=== PATIENT | male | born 1930 | race Caucasian/White ===

== ENCOUNTER 2017-03-07 14:35 | Inpatient (IN) | payer OTHER ==
--- NOTE | 2017-03-07 14:37 | EDPHY ---
H & P Time Seen by Provider: 03/07/17 14:36 HPI/ROS: CHIEF COMPLAINT: Shortness of breath HISTORY OF PRESENT ILLNESS: The patient is an 86[facility] brought by EMS for shortness of breath. They state that when he was arrived his respiratory rate was 36 and his saturations were in the 70s. Both of these improved with nasal cannula and a non-rebreather. He has a history of COPD and chronic respiratory failure as well as dementia and hypertension. No known cardiac disease. No recent fevers or illness according to EMS. Patient states that he is fine and does not need to be here. REVIEW OF SYSTEMS: Constitutional: denies: chills, fever, recent illness, recent injury EENTM: denies: blurred vision, double vision, nose congestion Respiratory: See HPI Cardiac: denies: chest pain, irregular heart rate, lightheadedness, palpitations Gastrointestinal/Abdominal: denies: abdominal pain, diarrhea, nausea, vomiting, blood streaked stools Genitourinary: denies: dysuria, frequency, hematuria, pain Musculoskeletal: denies: joint pain, muscle pain Skin: denies: lesions, rash, jaundice, bruising Neurological: denies: headache, numbness, paresthesia, tingling, dizziness, weakness Hematologic/Lymphatic: denies: blood clots, easy bleeding, easy bruising Immunologic/allergic: denies: HIV/AIDS, transplant EXAM: GENERAL: Well-appearing, well-nourished and in no acute distress. HEAD: Atraumatic, normocephalic. EYES: Pupils equal round and reactive to light, extraocular movements intact, sclera anicteric, conjunctiva are normal. ENT: TMs normal, nares patent, oropharynx clear without exudates. Moist mucous membranes. NECK: Normal range of motion, supple without lymphadenopathy or JVD. LUNGS: Bilateral wheezing upper lobes and rhonchi lower lobes. HEART: Regular rate and rhythm without murmurs, rubs or gallops. ABDOMEN: Soft, nontender, normoactive bowel sounds. No guarding, no rebound. No masses appreciated. BACK: No CVA tenderness, no spinal tenderness, step-offs or deformities EXTREMITIES: Normal range of motion, no pitting or edema. No clubbing or cyanosis. NEUROLOGICAL: Cranial nerves II through XII grossly intact. Normal speech, normal gait. 5/5 strength, normal movement in all extremities, normal sensation PSYCH: Normal mood, normal affect. SKIN: Warm, dry, normal turgor, no visible rashes or lesions. Source: Patient, EMS, shelter records Exam Limitations: Clinical condition - Medical/Surgical History Hx Asthma: No Hx Chronic Respiratory Disease: No Hx Diabetes: No Hx Cardiac Disease: No Hx Renal Disease: No Hx Cirrhosis: No Hx Alcoholism: No Other PMH: COPD, hypertension, dementia - Family History Significant Family History: Hypertension - Social History Smoking Status: Former smoker Alcohol Use: Sober Drug Use: None Constitutional: Initial Vital Signs Temperature (C) 36.4 C 03/07/17 14:46 Heart Rate 84 03/07/17 14:46 Respiratory Rate 26 H 03/07/17 14:46 Blood Pressure 160/66 H 03/07/17 14:46 O2 Sat (%) 92 03/07/17 14:46 O2 Delivery Mode Nasal Cannula O2 (L/minute) 6 Allergies/Adverse Reactions: No Known Allergies Allergy (Unverified 03/07/17 14:58) Home Medications: Medication Instructions Recorded Amiodarone HCl [Pacerone (*)] 200 mg PO BID 03/07/17 Bisacodyl [Dulcolax] 10 mg RC DAILY PRN 03/07/17 Fluticasone Nasal [Flonase Nasal 1 sprays EACHNARE DAILY 03/07/17 [place] (RX)] Fluticasone/Salmeter 100/50Mcg 1 puffs IH BID 03/07/17 [Advair 100/50 (*)] Herbals/Supplements -Info Only 1 ea PO DAILY 03/07/17 Ipratropium/Albuterol [Duoneb (*)] 3 ml IH Q4H PRN 03/07/17 Levalbuterol 1.25 mg [Xopenex 1.25 mg IH Q8H PRN 03/07/17 1.25MG Neb (*)] Levothyroxine [Synthroid 50 mcg 50 mcg PO DAILY 03/07/17 (*)] Metoprolol Tartrate [Lopressor 25 25 mg PO BID 03/07/17 mg (*)] Nystatin [Mycostatin Oint (RX)] 1 yahaira TP BID PRN 03/07/17 Polyethylene Glycol 3350 [Miralax 17 gm PO DAILY PRN 03/07/17 17 gm (*)] Ranitidine HCl [Zantac 75] 150 mg PO DAILY 03/07/17 Tamsulosin HCl [Flomax 0.4 MG (*)] 0.4 mg PO BID 03/07/17 Tiotropium Inhaler [Spiriva 18 mcg IH DAILY@09 03/07/17 [place]haler] predniSONE [Prednisone] 5 mg PO DAILY 03/07/17 Medical Decision Making ED Course/Re-evaluation: 3:30 p.m. I discussed the case with Dr MICHAELA Blanco who will admit to the medical service. She is requesting influenza to be sent as well. I will be cautious with his IV fluids. His vital signs are stable other than the hypoxia. His chest x-ray could be consistent with pulmonary edema although he does not have significant cardiomegaly or peripheral edema or crackles on breath sounds. He will need to be monitored closely Differential Diagnosis: Partial list of the Differential diagnosis considered include but were not limited to; pneumonia, COPD, CHF and although unlikely based on the history and physical exam, I also considered acute coronary disease, dissection, PE. Critical Care Time: I spent a total of 35 minutes of critical care time in obtaining history, performing a physical exam, bedside monitoring of interventions, collecting and interpreting tests and discussion with consultants but not including time spent performing procedures. - Data Points Laboratory Results: Laboratory Results 03/07/17 14:45 03/07/17 14:45 Medications Given: Discontinued Medications Albuterol/Ipratropium (Duoneb) 3 ml IH EDNOW ONE Stop: 03/07/17 14:43 Last Admin: 03/07/17 15:19 Dose: 3 ml Albuterol/Ipratropium (Duoneb) 3 ml IH ONCE ONE Stop: 03/07/17 16:26 Last Admin: 03/07/17 16:38 Dose: 3 ml Sodium Chloride (Ns) 2,200 mls @ 4,400 mls/hr 30 ml/kg infuse over 30 min ( 2200 ml) IV EDNOW ONE Stop: 03/07/17 15:52 Last Admin: 03/07/17 15:39 Dose: 2,200 mls Levofloxacin/Dextrose (Levaquin 750 Mg (Premix)) 150 mls @ 100 mls/hr IV EDNOW ONE PRN Reason: Protocol Stop: 03/07/17 16:56 Last Admin: 03/07/17 16:11 Dose: 150 mls Sodium Chloride (Ns) 1,000 mls @ 3,000 mls/hr IV ONCE ONE Stop: 03/07/17 15:56 Last Admin: 03/07/17 16:14 Dose: Not Given Methylprednisolone Sodium Succinate (Solu-Medrol) 125 mg IVP EDNOW ONE Stop: 03/07/17 14:43 Last Admin: 03/07/17 15:03 Dose: 125 mg Departure - Departure Disposition: [facility] Inpatient Acute Clinical Impression: Severe sepsis Pneumonia Qualifiers: Pneumonia type: due to unspecified organism Laterality: bilateral Lung location : unspecified part of lung Qualified Code(s): J18.9 - Pneumonia, unspecified organism Condition: Fair
[2017-03-07] MEDS ORDERED: IPRATROPIUM/ALBUTEROL 3 ML DEYVIAL IH ONE ×2 (14:42→16:25)
[2017-03-07] MEDS ORDERED: methylPREDNISolone SOD SUCC 125 MG/2 ML VIAL IVP ONE (14:42)
[2017-03-07 14:56] LABS: % IMMATURE GRANULYOCYTES 1.2 % (0.0-1.1); ABSOLUTE IMMATURE GRANULOCYTES 0.21 10^3/uL (0.00-0.10); ADD DIFF? NO; ADD MORPH? NO; ADD SCAN? NO; ATYPICAL LYMPHOCYTE FLAG 0 (0-99); FRAGMENT RBC FLAG 0 (0-99); HEMATOCRIT 38.8 % (40.0-51.0); HEMOGLOBIN 12.6 g/dL (13.7-17.5); LEFT SHIFT FLG 20 (0-99); LIPEMIA HEMOLYSIS FLAG 80 (0-99); MEAN CELL HEMOGLOBIN 31.4 pg (27.9-34.1); MEAN CELL HEMOGLOBIN CONCENTR. 32.5 g/dL (32.4-36.7); MEAN CELL VOLUME 96.8 fL (81.5-99.8); MEAN PLATELET VOLUME 9.6 fL (8.7-11.7); PLATELET CLUMPS FLAG 0 (0-99); PLATELET COUNT 330 10^3/uL (150-400); RED BLOOD CELL COUNT 4.01 10^6/uL (4.40-6.38); RED CELL DISTRIBUTION WIDTH 15.6 % (11.5-15.2)
--- NOTE | 2017-03-07 14:59 | CPEKG ---
Heart Rate: 76 RR Interval: 789 P-R Interval: 160 QRSD Interval: 94 QT Interval: 400 QTC Interval: 450 P [place]: 73 QRS [place]: 84 T Wave [place]: 69 EKG Severity - OTHERWISE NORMAL ECG - EKG Impression: SINUS RHYTHM EKG Impression: BORDERLINE RIGHT AXIS DEVIATION Electronically Signed By: Gurdeep Mclain 07-Mar-2017 15:05:20
[2017-03-07 15:14] LABS: ALANINE AMINOTRANSFERASE 35 IU/L (21-72); ALBUMIN 3.8 g/dL (3.5-5.0); ALKALINE PHOSPHATASE 86 IU/L (38-126); ANION GAP 12 mEq/L (8-16); ASPARTATE AMINOTRANSFERASE 29 IU/L (17-59); BILIRUBIN,TOTAL 0.9 mg/dL (0.1-1.4); BILIRUBIN-CONJUGATED 0.5 mg/dL (0.0-0.5); BILIRUBIN-UNCONJUGATED 0.4 mg/dL (0.0-1.1); CALCIUM 8.9 mg/dL (8.5-10.4); CARBON DIOXIDE 20 mEq/l (22-31); CHLORIDE 96 mEq/L (97-110); CREATININE 1.1 mg/dL (0.7-1.3); GLOMERULAR FILTRATION RATE > 60; GLUCOSE 135 mg/dL (70-100); POTASSIUM 5.6 mEq/L (3.5-5.2); SODIUM 128 mEq/L (134-144); TOTAL PROTEIN 6.6 g/dL (6.3-8.2)
[2017-03-07] MEDS ORDERED: NS 2,200 ML IV ONE (15:23)
[2017-03-07 15:26] LABS: TROPONIN I < 0.012 ng/mL (0-0.034)
[2017-03-07] MEDS ORDERED: ONDANSETRON 4 MG/2 ML VIAL IVP PRN (15:37)
[2017-03-07] MEDS ORDERED: ONDANSETRON DISINTEGRATING 4 MG TAB PO PRN (15:37)
[2017-03-07] MEDS ORDERED: ACETAMINOPHEN 325 MG TAB PO PRN (15:37)
[2017-03-07] MEDS ORDERED: NS 1,000 ML IV ONE (15:37)
[2017-03-07] MEDS ORDERED: IPRATROPIUM/ALBUTEROL 3 ML DEYVIAL ONE (16:26)
[2017-03-07] MEDS ORDERED: LEVALBUTEROL 1.25 MG/3 ML DEYVIAL IH PRN (17:41)
[2017-03-07] MEDS ORDERED: NYSTATIN 15 GM OINTMENT TP PRN (17:41)
[2017-03-07] MEDS ORDERED: BISACODYL 10 MG SUPP PR PRN (17:41)
[2017-03-07] MEDS ORDERED: POLYETHYLENE GLYCOL 3350 17 GM PKT PO PRN (17:41)
[2017-03-07] MEDS: FAMOTIDINE 20 MG TAB PO SCH (17:51)
[2017-03-07] MEDS: IPRATROPIUM/ALBUTEROL 3 ML DEYVIAL IH SCH (18:06)
--- NOTE | 2017-03-07 18:56 | GHP ---
[f rep st] HISTORY AND PHYSICAL DATE OF ADMISSION: 03/07/2017 CHIEF COMPLAINT: Rattling chest. HISTORY OF PRESENT ILLNESS: An 86-year-old male who is a resident of a ch[facility], [facility], who presents after he called the nurse today with complaints of a rattling chest. The patient appears to have some level of cognitive dysfunction, but describes being in his previous normal state of health and today, noticing a fullness or a rattling in his chest with some congestion and shortness of breath. The patient does report some cough that he does not feel is productive, as of his presentation to the ED. Denied any documented fevers or chills. Denied any nausea or vomiting. Reports chronic constipation, which has been unchanged. Denies any blood in his stool or in his urine. Denies any dysuria. Denies any muscle aches or pains, or any new rashes. PAST MEDICAL HISTORY: 1. COPD. 2. Gastroesophageal reflux disease. 3. BPH. 4. Hypothyroidism. 5. Suspect a dysrhythmia of some sort, as the patient is on amiodarone, but it is not noted in his [facility] chart. 6. Suspect baseline cognitive impairment based on admission interview SOCIAL HISTORY: The patient denies tobacco, alcohol or illicit drugs. FAMILY HISTORY: He denies any history of lung disease or heart disease in his family. Does report some relatives with atrial fibrillation. ADVANCED DIRECTIVES: Per the [facility] chart, the patient is full cor, full tube. REVIEW OF SYSTEMS: A 10-point review of systems is negative, with the exception of that reported in the HPI. PHYSICAL EXAMINATION: VITAL SIGNS: Blood pressure 109/69, heart rate 83, respiratory rate 28, saturating 90% on 15 L non-rebreather, afebrile at 36.4. GENERAL: This is a pleasant elderly male in no acute distress. HEENT: Notable for dry mucous membranes. Eye exam is negative for any icterus. CARDIAC: The patient sounds regular with a systolic murmur. PULMONARY: The patient does have wheezing anteriorly and posteriorly, with rhonchi noted bilaterally in the mid lung [place]. GASTROINTESTINAL: Positive bowel sounds. Abdomen is soft and nontender. MUSCULOSKELETAL: Negative for any lower extremity edema. SKIN: Negative for any rashes. NEUROLOGIC: The patient is alert and oriented x3. He does appear to have some cognitive dysfunction, but certainly knows who he is, where he is, and when it is. PSYCHIATRIC: He is pleasant and cooperative on interview and examination. DATA: White count is 17.5, hematocrit 38.8, platelets of 330. Sodium of 128, potassium of 5.6, creatinine 1.1. Troponin less than 0.012. IMAGING: Chest x-ray, which I personally reviewed and interpreted, shows bilateral infiltrates. Radiology queries underlying interstitial lung disease with right lower lobe pneumonia. EKG, which I personally reviewed and interpreted, shows sinus rhythm, normal axis, interventricular conduction delay , with no acute ST-T changes. ASSESSMENT AND PLAN: This is an 86-year-old male, presenting with shortness of breath. 1. Presumed community-acquired pneumonia. The patient is presenting with rattling chest wheezing, leukocytosis and infiltrates on chest x-ray. Will be empirically started on azithromycin and ceftriaxone. Blood cultures have been drawn from the emergency department and will follow those, and sputum cultures. Have asked that we check an influenza as well. 2. Chronic obstructive pulmonary disease exacerbation. Suspect triggered by underlying infectious process. Will continue the patient's home medications as well as scheduling DuoNeb here. The patient is chronically on 5 mg of prednisone. Will burst him with 40 mg daily. Did receive IV steroids in the emergency department on presentation. 3. Hypothyroidism. Will continue his Synthroid without change. 4. Benign prostatic hypertrophy. Will continue his tamsulosin without change. 5. Suspected cardia dysrhythmia based on the patient's medication list that includes both metoprolol and amiodarone. Will continue the amiodarone currently , but hold the metoprolol until we can establish the patient is hemodynamically stable. 6. Acute leukocytosis. The patient is presenting with a white count of 17. Suspect secondary to pneumonia. Will empirically treat as above and follow. 7. Hyponatremia. The patient looks more volume down than anything. He received fluid resuscitation in the ED. If he is taking p.o., will simply recheck a sodium in the morning. 8. Hyperkalemia. Unclear if this is true lab finding or hemolysis. Will repeat a BMP after fluid resuscitation this evening. 9. Prophylaxis with Lovenox. 10. Diet regular. DISPOSITION: I am expecting greater than 2 midnights. The patient is 86, presenting with COPD exacerbation and pneumonia. I have discussed the case with the emergency room physician. The patient will be triaged to the medical-surgical floor for care. /[id number]/MODL MTDD
[2017-03-07] MEDS: AMIODARONE HCL 200 MG TAB PO SCH (19:59)
[2017-03-07] MEDS: TAMSULOSIN HCL 0.4 MG CAP PO SCH (19:59)
[2017-03-07] MEDS: guaiFENesin 600 MG TAB.ER PO SCH (19:59)
[2017-03-07 20:45] LABS: ANION GAP 10 mEq/L (8-16); CALCIUM 8.1 mg/dL (8.5-10.4); CARBON DIOXIDE 18 mEq/l (22-31); CHLORIDE 100 mEq/L (97-110); GLOMERULAR FILTRATION RATE > 60; GLUCOSE 190 mg/dL (70-100); POTASSIUM 4.8 mEq/L (3.5-5.2); SODIUM 128 mEq/L (134-144)
[2017-03-08] MEDS: FLUTICASONE/SALMETER 100/50MCG DISKUS IH SCH ×3 (00:10→19:50)
[2017-03-08] MEDS: IPRATROPIUM/ALBUTEROL 3 ML DEYVIAL IH SCH ×5 (00:10→23:00)
[2017-03-08 05:08] LABS: % IMMATURE GRANULYOCYTES 0.8 % (0.0-1.1); ABSOLUTE IMMATURE GRANULOCYTES 0.09 10^3/uL (0.00-0.10); ADD DIFF? NO; ADD MORPH? NO; ADD SCAN? NO; ATYPICAL LYMPHOCYTE FLAG 0 (0-99); FRAGMENT RBC FLAG 0 (0-99); HEMATOCRIT 31.9 % (40.0-51.0); HEMOGLOBIN 10.7 g/dL (13.7-17.5); LEFT SHIFT FLG 30 (0-99); LIPEMIA HEMOLYSIS FLAG 80 (0-99); MEAN CELL HEMOGLOBIN CONCENTR. 33.5 g/dL (32.4-36.7); MEAN CELL VOLUME 95.5 fL (81.5-99.8); MEAN PLATELET VOLUME 9.8 fL (8.7-11.7); PLATELET CLUMPS FLAG 0 (0-99); PLATELET COUNT 299 10^3/uL (150-400); RED BLOOD CELL COUNT 3.34 10^6/uL (4.40-6.38); RED CELL DISTRIBUTION WIDTH 15.5 % (11.5-15.2)
[2017-03-08 05:44] LABS: ANION GAP 10 mEq/L (8-16); CALCIUM 8.4 mg/dL (8.5-10.4); CARBON DIOXIDE 19 mEq/l (22-31); CHLORIDE 104 mEq/L (97-110); CREATININE 0.9 mg/dL (0.7-1.3); GLOMERULAR FILTRATION RATE > 60; GLUCOSE 153 mg/dL (70-100); POTASSIUM 4.7 mEq/L (3.5-5.2); SODIUM 133 mEq/L (134-144)
[2017-03-08] MEDS: TIOTROPIUM INHALER 18 MCG/DOSE 5 DOSE/MDI IH SCH (08:51)
[2017-03-08] MEDS ORDERED: predniSONE 10 MG TAB PO SCH (09:00)
[2017-03-08] MEDS ORDERED: Herbals/Supplements -Info Only PO SCH (09:00)
[2017-03-08] MEDS: AZITHROMYCIN IV 500 MG in D5W 250 ML IV SCH (09:27)
[2017-03-08] MEDS: AMIODARONE HCL 200 MG TAB PO SCH ×2 (09:33→21:45)
[2017-03-08] MEDS: FAMOTIDINE 20 MG TAB PO SCH (09:33)
[2017-03-08] MEDS: LEVOTHYROXINE 50 MCG TAB PO SCH (09:34)
[2017-03-08] MEDS: TAMSULOSIN HCL 0.4 MG CAP PO SCH ×2 (09:34→21:45)
[2017-03-08] MEDS: predniSONE 20 MG TAB PO SCH (09:34)
[2017-03-08] MEDS: guaiFENesin 600 MG TAB.ER PO SCH ×2 (09:35→21:45)
[2017-03-08] MEDS: ENOXAPARIN 40 MG/0.4 ML SYR SC SCH (09:35)
[2017-03-08] MEDS: FLUTICASONE NASAL 120 SPRAYS/16 GM MDI EACHNARE SCH (10:14)
[2017-03-08] MEDS ORDERED: FUROSEMIDE 40 MG/4 ML VIAL IVP ONE (10:25)
--- NOTE | 2017-03-08 14:22 | HOSPPROG ---
Hospitalist Progress Note Assessment/Plan: 86y male with c/o SOB. This is my first encounter. Chart reviewed. #CAP CXR shows potential fluid (personally reviewed) Cont CTX and azithro #Acute hypoxemic resp failure multifactorial cont support #CHF dose of lasix given 40mg IV #COPD exac cont steroids #Acute leukocytosis significantly better today #Hyponatremia better, dehydration #Anemia mild #Hypothyroid cont home meds #Hyperkalemia resolved with fluids #Dispo unclear, may need SNF PT/OT eval Subjective: Up in chair. Feels better then yesterday. No pain. Objective: Vital Signs Temp Pulse Resp BP Pulse Ox 36.6 C 93 22 H 106/51 L 92 03/08/17 12:00 03/08/17 12:00 03/08/17 12:00 03/08/17 12:00 03/08/17 12:00 Laboratory Results 03/08/17 04:34 03/08/17 04:34 03/07/17 03/08/17 03/09/17 05:59 05:59 05:59 Intake Total 2200 Balance 2200 - Physical Exam Constitutional: no apparent distress, appears nourished, not in pain Eyes: PERRL, anicteric sclera, EOMI Ears, Nose, Mouth, Throat: moist mucous membranes, hearing normal, ears appear normal Cardiovascular: No JVD, No tachycardia, No edema Respiratory: no respiratory distress, reduced air movement, rhonchi Gastrointestinal: normoactive bowel sounds, No tenderness, No ascites Skin: warm, normal color, No mottled Musculoskeletal: normal joint ROM, no joint effusions, generalized weakness Neurologic: AAOx3 Psychiatric: interacting appropriately, not anxious, not encephalopathic, poor insight, poor memory ICD10 Worksheet Patient Problems: Problems Problem Status Onset Chronic Disease Mgmt/Transitional Care Acute Pneumonia Acute Severe sepsis Acute
[2017-03-09] MEDS: IPRATROPIUM/ALBUTEROL 3 ML DEYVIAL IH SCH ×4 (06:01→22:38)
[2017-03-09] MEDS: TAMSULOSIN HCL 0.4 MG CAP PO SCH ×2 (08:00→20:29)
[2017-03-09] MEDS: predniSONE 20 MG TAB PO SCH (08:01)
[2017-03-09] MEDS: guaiFENesin 600 MG TAB.ER PO SCH ×2 (08:01→20:29)
[2017-03-09] MEDS: LEVOTHYROXINE 50 MCG TAB PO SCH (08:01)
[2017-03-09] MEDS: AMIODARONE HCL 200 MG TAB PO SCH ×2 (08:02→20:29)
[2017-03-09] MEDS: FAMOTIDINE 20 MG TAB PO SCH (08:02)
[2017-03-09] MEDS: ENOXAPARIN 40 MG/0.4 ML SYR SC SCH (08:02)
[2017-03-09] MEDS: FLUTICASONE NASAL 120 SPRAYS/16 GM MDI EACHNARE SCH (08:08)
[2017-03-09] MEDS: AZITHROMYCIN IV 500 MG in D5W 250 ML IV SCH (09:14)
[2017-03-09] MEDS: FLUTICASONE/SALMETER 100/50MCG DISKUS IH SCH ×2 (10:53→22:38)
[2017-03-09] MEDS: TIOTROPIUM INHALER 18 MCG/DOSE 5 DOSE/MDI IH SCH (10:53)
[2017-03-09] MEDS ORDERED: FUROSEMIDE 20 MG/2 ML VIAL IVP ONE (12:17)
--- NOTE | 2017-03-09 12:23 | HOSPPROG ---
Hospitalist Progress Note Assessment/Plan: 86y male with c/o SOB. This is my first encounter. Chart reviewed. #CAP, improving CXR shows potential fluid (personally reviewed) Cont CTX and azithro Repeat CXR in a.m. #Acute hypoxemic resp failure multifactorial cont support #Query CHF, unclear if systolic or diastolic. Unclear chronicity. Will provide additional Lasix today and order TTE. #COPD exac cont steroids #Acute leukocytosis significantly better today #Hyponatremia, repeat labs in the a.m. better, dehydration #Anemia mild #Hypothyroid cont home meds #Hyperkalemia resolved with fluids #Dispo unclear, may need SNF PT/OT eval Subjective: feels better but still with increased O2 needs from baseline. No cough. Some leg edema. Denies hx of CHF Objective: Vital Signs Temp Pulse Resp BP Pulse Ox 36.4 C 93 18 119/58 L 90 L 03/09/17 11:18 03/09/17 11:18 03/09/17 11:18 03/09/17 11:18 03/09/17 11:18 Laboratory Results 03/08/17 04:34 03/08/17 04:34 03/08/17 03/09/17 03/10/17 05:59 05:59 05:59 Intake Total 2200 250 Output Total 175 Balance 2200 75 - Physical Exam Constitutional: no apparent distress, appears nourished Eyes: PERRL, EOMI Ears, Nose, Mouth, Throat: moist mucous membranes, ears appear normal Cardiovascular: regular rate and rhythym, edema (trace bilaterally), No irregularly irregular, No JVD Respiratory: no respiratory distress, rhonchi Gastrointestinal: normoactive bowel sounds, soft, non-tender abdomen, no palpable masses Genitourinary: no bladder fullness Skin: warm, normal color Neurologic: AAOx3, CN II-XII Intact Psychiatric: interacting appropriately, not anxious, not encephalopathic ICD10 Worksheet Patient Problems: Problems Problem Status Onset Chronic Disease Mgmt/Transitional Care Acute Pneumonia Acute Severe sepsis Acute
[2017-03-10 05:22] LABS: % IMMATURE GRANULYOCYTES 1.2 % (0.0-1.1); ABSOLUTE IMMATURE GRANULOCYTES 0.14 10^3/uL (0.00-0.10); ADD DIFF? NO; ADD MORPH? NO; ADD SCAN? NO; ATYPICAL LYMPHOCYTE FLAG 10 (0-99); FRAGMENT RBC FLAG 0 (0-99); HEMATOCRIT 33.5 % (40.0-51.0); HEMOGLOBIN 11.2 g/dL (13.7-17.5); LEFT SHIFT FLG 10 (0-99); LIPEMIA HEMOLYSIS FLAG 80 (0-99); MEAN CELL HEMOGLOBIN 31.7 pg (27.9-34.1); MEAN CELL HEMOGLOBIN CONCENTR. 33.4 g/dL (32.4-36.7); MEAN CELL VOLUME 94.9 fL (81.5-99.8); MEAN PLATELET VOLUME 9.1 fL (8.7-11.7); PLATELET CLUMPS FLAG 0 (0-99); PLATELET COUNT 304 10^3/uL (150-400); RED BLOOD CELL COUNT 3.53 10^6/uL (4.40-6.38); RED CELL DISTRIBUTION WIDTH 15.8 % (11.5-15.2)
[2017-03-10 05:38] LABS: ANION GAP 6 mEq/L (8-16); CALCIUM 8.8 mg/dL (8.5-10.4); CARBON DIOXIDE 24 mEq/l (22-31); CHLORIDE 102 mEq/L (97-110); GLOMERULAR FILTRATION RATE > 60; GLUCOSE 86 mg/dL (70-100); POTASSIUM 4.4 mEq/L (3.5-5.2); SODIUM 132 mEq/L (134-144)
[2017-03-10] MEDS: IPRATROPIUM/ALBUTEROL 3 ML DEYVIAL IH SCH ×4 (05:38→22:37)
[2017-03-10] MEDS: AZITHROMYCIN IV 500 MG in D5W 250 ML IV SCH (08:32)
[2017-03-10] MEDS: guaiFENesin 600 MG TAB.ER PO SCH ×2 (08:34→20:35)
[2017-03-10] MEDS: LEVOTHYROXINE 50 MCG TAB PO SCH (08:38)
[2017-03-10] MEDS: FAMOTIDINE 20 MG TAB PO SCH (08:38)
[2017-03-10] MEDS: AMIODARONE HCL 200 MG TAB PO SCH ×2 (08:38→20:35)
[2017-03-10] MEDS: predniSONE 20 MG TAB PO SCH (08:38)
[2017-03-10] MEDS: TAMSULOSIN HCL 0.4 MG CAP PO SCH ×2 (08:39→20:35)
[2017-03-10] MEDS: ENOXAPARIN 40 MG/0.4 ML SYR SC SCH (08:47)
[2017-03-10] MEDS ORDERED: FUROSEMIDE 40 MG/4 ML VIAL IVP STA (09:01)
[2017-03-10] MEDS: TIOTROPIUM INHALER 18 MCG/DOSE 5 DOSE/MDI IH SCH (09:06)
[2017-03-10] MEDS: FLUTICASONE/SALMETER 100/50MCG DISKUS IH SCH ×2 (09:06→22:38)
--- NOTE | 2017-03-10 09:53 | HOSPPROG ---
Hospitalist Progress Note Assessment/Plan: this is an 85 yo M admitted for CAP and COPD-E. Upon further clinical path, he likely has CHF-E of unclear chronicity. Today he was found to have worsening SOB and hypoxemia. CXR reviewed by me shows pulm edema. He is responding to Lasix and I will scheduled this BID. Cont abx and steroids. I have updated the pt's daughter Megan at [phone] #CAP, improving CXR shows potential fluid (personally reviewed) Cont CTX and azithro #Acute hypoxemic resp failure multifactorial cont support #Query CHF, unclear if systolic or diastolic. Unclear chronicity. Lasix BID TTE pending #COPD exac cont steroids #Acute leukocytosis significantly better today #Hyponatremia better, dehydration #Anemia mild #Hypothyroid cont home meds #Hyperkalemia resolved with fluids #Dispo unclear, may need SNF PT/OT eval Subjective: Called to pts bedside urgently by nurse due to increased O2 needs. He reports SOB. Appears comfortable. No CP. + leg swelling Objective: Vital Signs Temp Pulse Resp BP Pulse Ox 36.6 C 76 22 H 122/62 H 93 03/10/17 08:00 03/10/17 09:28 03/10/17 09:28 03/10/17 08:00 03/10/17 09:28 Laboratory Results 03/10/17 05:14 03/10/17 05:14 03/09/17 03/10/17 03/11/17 05:59 05:59 05:59 Intake Total 250 250 Output Total 175 Balance 75 250 - Time Spent With Patient Time Spent with Patient: greater than 35 minutes Time Spent with Patient: Greater than 35 minutes spent on this patients care, greater than 50% of time spent counseling, educating, and coordinating care regarding the above mentioned plan. - Physical Exam Constitutional: no apparent distress, appears nourished, not in pain Eyes: PERRL, EOMI Ears, Nose, Mouth, Throat: moist mucous membranes, hearing normal Cardiovascular: regular rate and rhythym, no murmur, rub, or gallop, edema ( trace bilaterally), No JVD Respiratory: respiratory distress, No no respiratory distress, No clear to auscultation Gastrointestinal: soft, non-tender abdomen Skin: warm, normal color Neurologic: AAOx3 Psychiatric: interacting appropriately, not anxious, not encephalopathic ICD10 Worksheet Patient Problems: Problems Problem Status Onset Chronic Disease Mgmt/Transitional Care Acute Pneumonia Acute Severe sepsis Acute
--- NOTE | 2017-03-10 10:06 | ECHO ---
[id number] + + [address] : : [place] [address] : : [phone] + + Adult Echocardiographic Report + -----+ :Name: SKYLER ALFARO RStudy Date: 03/09/2017 01:58 PM : : Hospital Admission Number: [id number] Location : 388: :: 1930 Gender: Male Height: 72 in : :Age: 86 yrs Race: WH Weight: 165 lb : :Reason For Study: Eval LV Fx : : BSA: 2.0 meters2 : :History: Pneumonia, Hypoxia : + -----+ MMode/2D Measurements \T\ Calculations IVSd: 1.00 cm LVIDd: 5.2 cm FS: 43.7 % Ao root diam: 3.5 cm LVPWd: 1.1 cm LVIDs: 2.9 cm EDV(Teich): 130.9 ml ACS: 2.3 cm ESV(Teich): 33.3 ml EF(Teich): 74.5 % Normal Measurement Values: + + :LVIDd (3.5-5.7cm) IVSd (0.6-1.1cm) LVPWd (0.6-1.1cm) Aortic Root (2.0-3.7cm)Left Atrium (1.5-4.0cm): :LV Vol(d) (76-115ml) LV Vol(s) (29-48ml) Ejec Fraction (50-65%)PV Marcelo (0.6- 1.2m/s) TV Marcelo (0.4-1.0m/s) : :MV E Marcelo (0.8-1.0m/s)MV A Marcelo (0.3-1.0m/s)LVOT Marcelo (0.7-1.2m/s) Asc Ao Marcelo ( 0.9-1.8m/s) : + + Doppler Measurements \T\ Calculations MV E max marcelo: Ao V2 max: LV V1 max: PA V2 max: 53.8 cm/sec 143.9 cm/sec 88.8 cm/sec 95.0 cm/sec MV A max marcelo: Ao max P.3 mmHgLV V1 max PG: PA max P.0 cm/sec 3.2 mmHg 3.6 mmHg MV E/A: 0.47 TR max marcelo: 339.3 cm/sec TR max P.1 mmHg RAP systole: 5.0 mmHg RVSP(TR): 51.1 mmHg Left Ventricle The left ventricle is normal in size. There is normal left ventricular wall thickness. There is left venticular dysschrony. There is Doppler evidence for diastolic dysfunction. Left ventricular systolic function is normal. Right Ventricle The right ventricle is normal in size and function. Atria The left atrial size is normal. Right atrial size is normal. Mitral Valve The mitral valve is normal in structure and function. There is no evidence of mitral valve prolapse. There is no mitral valve stenosis. There is no mitral regurgitation noted. Tricuspid Valve There is trace to mild tricuspid regurgitation. Right ventricular systolic pressure is 52mmHg. There is Doppler evidence for moderate pulmonary hypertension. Aortic Valve The aortic valve is normal in structure and function. There is no aortic stenosis. There is no aortic insufficiency. Pulmonic Valve The pulmonic valve is normal in structure and function. There is no pulmonic valvular regurgitation. Great Vessels The aortic root is normal size. Pericardium/Pleural There is no pericardial effusion. Conclusion A complete two-dimensional transthoracic echocardiogram was performed (2D, M-mode, Doppler and color flow Doppler). Sinus tachycardia with frequent ectopy noted during the study. Normal LV size. Left ventricular systolic function is normal. There is Doppler evidence for diastolic dysfunction. Dysynchronous interventricular septal motion. Normal appearing valves. There is trace to mild tricuspid regurgitation. Right ventricular systolic pressure is 52mmHg. There is no pericardial effusion. Final Reading Physician: Adwoa Roy signed on 03/10/2017 10:05 AM Ordering Physician: David Brothers Performed By: Sameer Copeland, MAICS
[2017-03-10] MEDS: METOPROLOL TARTRATE 25 MG TAB PO SCH ×2 (12:11→20:35)
[2017-03-10] MEDS: FLUTICASONE NASAL 120 SPRAYS/16 GM MDI EACHNARE SCH (12:12)
[2017-03-10] MEDS: FUROSEMIDE 40 MG/4 ML VIAL IVP SCH (15:10)
[2017-03-10] MEDS ORDERED: IPRATROPIUM/ALBUTEROL 3 ML DEYVIAL ONE (22:32)
[2017-03-11] MEDS: IPRATROPIUM/ALBUTEROL 3 ML DEYVIAL IH SCH ×4 (05:22→22:07)
[2017-03-11 06:04] LABS: % IMMATURE GRANULYOCYTES 1.8 % (0.0-1.1); ABSOLUTE IMMATURE GRANULOCYTES 0.19 10^3/uL (0.00-0.10); ADD DIFF? NO; ADD MORPH? NO; ADD SCAN? NO; ATYPICAL LYMPHOCYTE FLAG 0 (0-99); FRAGMENT RBC FLAG 0 (0-99); HEMATOCRIT 31.5 % (40.0-51.0); HEMOGLOBIN 10.5 g/dL (13.7-17.5); LEFT SHIFT FLG 90 (0-99); LIPEMIA HEMOLYSIS FLAG 80 (0-99); MEAN CELL HEMOGLOBIN 31.6 pg (27.9-34.1); MEAN CELL HEMOGLOBIN CONCENTR. 33.3 g/dL (32.4-36.7); MEAN CELL VOLUME 94.9 fL (81.5-99.8); MEAN PLATELET VOLUME 9.6 fL (8.7-11.7); PLATELET CLUMPS FLAG 0 (0-99); PLATELET COUNT 287 10^3/uL (150-400); RED BLOOD CELL COUNT 3.32 10^6/uL (4.40-6.38); RED CELL DISTRIBUTION WIDTH 15.6 % (11.5-15.2)
[2017-03-11 06:28] LABS: ANION GAP 6 mEq/L (8-16); CALCIUM 8.5 mg/dL (8.5-10.4); CARBON DIOXIDE 23 mEq/l (22-31); CHLORIDE 101 mEq/L (97-110); GLOMERULAR FILTRATION RATE > 60; GLUCOSE 95 mg/dL (70-100); POTASSIUM 4.1 mEq/L (3.5-5.2); SODIUM 130 mEq/L (134-144)
[2017-03-11] MEDS: ENOXAPARIN 40 MG/0.4 ML SYR SC SCH (09:12)
[2017-03-11] MEDS: AZITHROMYCIN IV 500 MG in D5W 250 ML IV SCH (09:12)
[2017-03-11] MEDS: AMIODARONE HCL 200 MG TAB PO SCH ×2 (09:13→20:10)
[2017-03-11] MEDS: guaiFENesin 600 MG TAB.ER PO SCH ×2 (09:13→20:10)
[2017-03-11] MEDS: TAMSULOSIN HCL 0.4 MG CAP PO SCH ×2 (09:13→20:10)
[2017-03-11] MEDS: METOPROLOL TARTRATE 25 MG TAB PO SCH ×2 (09:13→20:11)
[2017-03-11] MEDS: predniSONE 20 MG TAB PO SCH (09:13)
[2017-03-11] MEDS: FLUTICASONE NASAL 120 SPRAYS/16 GM MDI EACHNARE SCH (09:14)
[2017-03-11] MEDS: FUROSEMIDE 40 MG/4 ML VIAL IVP SCH ×2 (09:14→15:59)
[2017-03-11] MEDS: LEVOTHYROXINE 50 MCG TAB PO SCH (09:14)
[2017-03-11] MEDS: FAMOTIDINE 20 MG TAB PO SCH (09:14)
[2017-03-11] MEDS: TIOTROPIUM INHALER 18 MCG/DOSE 5 DOSE/MDI IH SCH (10:21)
[2017-03-11] MEDS: FLUTICASONE/SALMETER 100/50MCG DISKUS IH SCH ×2 (10:21→22:06)
--- NOTE | 2017-03-11 13:49 | HOSPPROG ---
Hospitalist Progress Note Assessment/Plan: this is an 85 yo M admitted for CAP and COPD-E. Upon further clinical path, he likely has CHF-E of unclear chronicity. #CAP, improving CXR shows potential fluid Cont CTX and azithro consider CTA of chest if not improving #Acute hypoxemic resp failure multifactorial cont support #Query CHF, unclear if systolic or diastolic. Unclear chronicity. Lasix BID TTE stable #COPD exac cont steroids #Acute leukocytosis significantly better today #Hyponatremia better, dehydration #Anemia mild #Hypothyroid cont home meds #Hyperkalemia resolved with fluids #Dispo unclear, may need SNF PT/OT eval Subjective: Up in the chair. No specific complaints. No pain currently. Objective: Vital Signs Temp Pulse Resp BP Pulse Ox 37.1 C 81 20 149/77 H 90 L 03/11/17 08:00 03/11/17 10:28 03/11/17 10:28 03/11/17 09:13 03/11/17 10:28 Laboratory Results 03/11/17 05:00 03/11/17 05:00 03/10/17 03/11/17 03/12/17 05:59 05:59 05:59 Intake Total 250 250 Output Total 1200 Balance 250 -950 - Physical Exam Constitutional: chronically ill appearing Eyes: PERRL, anicteric sclera, EOMI Ears, Nose, Mouth, Throat: moist mucous membranes, hard of hearing Cardiovascular: edema, No JVD Respiratory: no respiratory distress, rhonchi Gastrointestinal: No tenderness, No ascites Skin: warm, normal color, No erythema Musculoskeletal: normal joint ROM, no joint effusions, generalized weakness Psychiatric: not anxious, poor insight, poor judgement, poor memory ICD10 Worksheet Patient Problems: Problems Problem Status Onset Chronic Disease Mgmt/Transitional Care Acute Pneumonia Acute Severe sepsis Acute
[2017-03-11] MEDS ORDERED: IOPAMIDOL (ISOVUE 370) 100 ML BTL IV ONE (14:45)
[2017-03-12] MEDS: IPRATROPIUM/ALBUTEROL 3 ML DEYVIAL IH SCH ×4 (06:08→22:35)
[2017-03-12] MEDS: predniSONE 20 MG TAB PO SCH (09:39)
[2017-03-12] MEDS: FUROSEMIDE 40 MG/4 ML VIAL IVP SCH ×2 (09:39→15:45)
[2017-03-12] MEDS: TAMSULOSIN HCL 0.4 MG CAP PO SCH ×2 (09:39→20:34)
[2017-03-12] MEDS: AMIODARONE HCL 200 MG TAB PO SCH (09:40)
[2017-03-12] MEDS: LEVOTHYROXINE 50 MCG TAB PO SCH (09:40)
[2017-03-12] MEDS: AZITHROMYCIN IV 500 MG in D5W 250 ML IV SCH (09:40)
[2017-03-12] MEDS: FAMOTIDINE 20 MG TAB PO SCH (09:40)
[2017-03-12] MEDS: guaiFENesin 600 MG TAB.ER PO SCH ×2 (09:40→20:34)
[2017-03-12] MEDS: ENOXAPARIN 40 MG/0.4 ML SYR SC SCH (09:40)
[2017-03-12] MEDS: METOPROLOL TARTRATE 25 MG TAB PO SCH ×2 (09:40→20:34)
--- NOTE | 2017-03-12 09:41 | HOSPPROG ---
Hospitalist Progress Note Assessment/Plan: this is an 85 yo M admitted for CAP and COPD. #CAP, CXR shows potential fluid On CTX and azithro CTA shows emphysema, personally reviewed consult pulm...D/W Dr sharp consider ID #Acute hypoxemic resp failure multifactorial, not improving cont support pulm consult pt was just hospitalized at [facility] for resp failure #Query CHF, unclear if systolic or diastolic. Unclear chronicity. Lasix BID TTE stable #COPD exac cont steroids #Acute leukocytosis significantly better today #Hyponatremia better, dehydration #Anemia mild #Hypothyroid cont home meds #Hyperkalemia resolved with fluids #Dispo unclear, will need SNF PT/OT will go to [facility] at time of DC Called daughter, Megan, discussed prognosis and plan with her, she is going out of the country for 3 weeks on 03/13/17 Subjective: Up in the chair. Feels fine. No complaints. Objective: Vital Signs Temp Pulse Resp BP Pulse Ox 36.3 C 85 20 138/74 H 91 L 03/12/17 03:07 03/12/17 03:07 03/12/17 03:07 03/12/17 03:07 03/12/17 03:07 Laboratory Results 03/11/17 05:00 03/11/17 05:00 03/11/17 03/12/17 03/13/17 05:59 05:59 05:59 Intake Total 250 460 Output Total 1200 1500 Balance -950 -1040 - Physical Exam Constitutional: appears nourished, not in pain, chronically ill appearing Eyes: PERRL, anicteric sclera, EOMI Ears, Nose, Mouth, Throat: moist mucous membranes, hearing normal, ears appear normal Cardiovascular: regular rate and rhythym, No JVD, No edema Respiratory: no respiratory distress, reduced air movement, rhonchi Gastrointestinal: normoactive bowel sounds, No tenderness, No ascites Skin: warm, normal color, No erythema Musculoskeletal: no joint effusions, muscular tenderness, generalized weakness Neurologic: AAOx3 Psychiatric: interacting appropriately, not anxious, not encephalopathic, poor insight, poor judgement ICD10 Worksheet Patient Problems: Problems Problem Status Onset Chronic Disease Mgmt/Transitional Care Acute Pneumonia Acute Severe sepsis Acute
[2017-03-12] MEDS: TIOTROPIUM INHALER 18 MCG/DOSE 5 DOSE/MDI IH SCH (10:30)
[2017-03-12] MEDS: FLUTICASONE/SALMETER 100/50MCG DISKUS IH SCH ×2 (10:30→22:36)
[2017-03-12] MEDS: FLUTICASONE NASAL 120 SPRAYS/16 GM MDI EACHNARE SCH (11:13)
--- NOTE | 2017-03-12 15:27 | GCON ---
[f rep st] CONSULTATION PULMONARY/CRITICAL CARE CONSULTATION. DATE OF CONSULTATION: 03/12/2017 REFERRING PHYSICIAN: Patience Blanco MD REFERRING PROVIDER: Rebecca Grimm NP REASON FOR REFERRAL: Evaluation and management of pneumonia and COPD with dyspnea. HISTORY: Mr. Melendez is an 86-year-old gentleman who lives at [facility]. He was admi tted to [facility] at the end of November 2016 with community-acquired pneumonia, possible aspi ration. A CT scan at that time showed multifocal ground-glass and consolidative opacities in the ri ght upper lobe, middle lobe, and right lower lobe. There were also fibrotic changes in both lower l obes. He was treated with Zosyn and vancomycin, as well as steroids. At that time, he indicated th at he did not want to be intubated. He was discharged after being in the hospital approximately 10 days. He was discharged to a rehab facility, then saw Dr. Sommers in followup. He was off steroids at that time. He does not feel that he ever got quite back to his baseline, but was doing fairly we ll until about 5 days ago when he began to feel a rattling in his chest, as well as some increased d yspnea. He was brought to [facility] where a CT scan showed possible bibasilar pneu monia. He was treated with azithromycin and ceftriaxone, as well as steroids. He has also been sta rted on Lasix. He reports that his rattling is better, but not resolved. He still has a cough prod uctive of discolored sputum. He feels dyspneic; essentially he feels dyspnea is mild and unchanged. PAST MEDICAL HISTORY: 1. COPD. The patient has about a 12-[id number]-ickz history of smoking. He is followed for COPD by Dr. Sommers. 2. Gastroesophageal reflux disease. He was apparently evaluated for aspiration during his time Ej sta, but was cleared by Speech Therapy to eat. 3. Hypothyroidism. 4. Atrial fibrillation. The patient had an episode of atrial fibrillation with a rapid ventricular response at 170 beats per minute during his hospitalization back in . Amiodarone was apparently started about that time, and the intent was to stop it in a few weeks. MEDICATIONS: Amiodarone, azithromycin, ceftriaxone, enoxaparin, Flonase, famotidine, furosemide, Ad vair, Mucinex, DuoNebs, Xopenex nebs, Synthroid, metoprolol, prednisone 40 mg daily, Flomax, and Spi lucy. ALLERGIES: None. SOCIAL HISTORY: The patient is a 60 pack-year history of smoking tobacco. He denies alcohol. He l freddie at [facility]. FAMILY HISTORY: Unremarkable. REVIEW OF SYSTEMS: A complete review of systems adds nothing to the History of Present Illness. PHYSICAL EXAMINATION: GENERAL: The patient is awake, alert, in no acute distress. VITAL SIGNS: S table, with a blood pressure of 108/51 and a heart rate of 85. He is afebrile. Oxygen saturations are 92% on 10 L, down from 15 L yesterday. HEENT: Normocephalic and atraumatic. No icterus. NECK : No JVD. Trachea is midline. CHEST: Bibasilar rales. CARDIAC: Regular rate and rhythm without murmur. ABDOMEN: Soft, nontender. Bowel sounds are present. EXTREMITIES: No clubbing, cyanosis , or edema. NEURO: The patient is awake and alert. He has no gross sensory or motor deficits. LABORATORY: White blood count is 10.6, down from 17.5 at admission. Hemoglobin is 10.5. Arterial blood gas is 1.5, down from 2.5 at admission. Sodium is 138, creatinine is 1.02. BNP was 1380. In fluenza is negative. A CT scan of the chest shows moderate to severe diffuse central lobular emphysema with some basilar predominant consolidation/interstitial changes. There is no pulmonary embolism. There are tiny mykel ateral pleural effusions. An echocardiogram shows normal LV size and function with evidence of diastolic dysfunction. The RVS P is 52 mmHg. ASSESSMENT: 1. Community-acquired pneumonia. The patient had a productive cough and has basilar infiltrates. There may be chronic component to these, but I think there is also likely a component of acute bronc hopneumonia. The patient has been started on azithromycin and ceftriaxone, which should be appropri ate coverage for community-acquired pneumonia, although it is also possible that he may have resista nt organisms given his treatment with antibiotics two and a half months ago. 2. Moderate to severe emphysema. The patient is being appropriately treated with bronchodilators a s well as a short course of steroids. Although his intake form suggests he is on prednisone 5 mg da pattie, his outpatient notes from Dr. Sommers suggests that this was a taper and that he was not taking it. 3. Pulmonary hypertension. This is mild to moderate based on the echocardiogram here, but this cou ld be acutely elevated due to his illness. 4. Possible fibrosis in the bases. This could be idiopathic pulmonary fibrosis or also could be du e to aspiration from his gastroesophageal reflux. 5. Atrial fibrillation. The patient had an episode of atrial fibrillation during his hospitalizati on in December. He was supposed to have cardiology followup, but I do not have any records from that. RECOMMENDATIONS: 1. Continue current bronchodilators, mucolytic, steroids, antibiotics, and diuresis. 2. Check a sputum culture. 3. Stop amiodarone. /[id number]/MODL
[2017-03-13] MEDS: IPRATROPIUM/ALBUTEROL 3 ML DEYVIAL IH SCH ×4 (05:45→21:45)
[2017-03-13] MEDS: FLUTICASONE/SALMETER 100/50MCG DISKUS IH SCH ×2 (09:12→21:45)
[2017-03-13] MEDS: TIOTROPIUM INHALER 18 MCG/DOSE 5 DOSE/MDI IH SCH (09:13)
[2017-03-13] MEDS: ENOXAPARIN 40 MG/0.4 ML SYR SC SCH (09:48)
[2017-03-13] MEDS: FUROSEMIDE 40 MG/4 ML VIAL IVP SCH ×2 (09:48→16:18)
[2017-03-13] MEDS: AZITHROMYCIN IV 500 MG in D5W 250 ML IV SCH (09:48)
[2017-03-13] MEDS: LEVOTHYROXINE 50 MCG TAB PO SCH (09:49)
[2017-03-13] MEDS: FAMOTIDINE 20 MG TAB PO SCH (09:49)
[2017-03-13] MEDS: guaiFENesin 600 MG TAB.ER PO SCH ×2 (09:49→20:23)
[2017-03-13] MEDS: TAMSULOSIN HCL 0.4 MG CAP PO SCH ×2 (09:49→20:23)
[2017-03-13] MEDS: METOPROLOL TARTRATE 25 MG TAB PO SCH ×2 (09:49→20:24)
[2017-03-13] MEDS: predniSONE 20 MG TAB PO SCH (09:49)
--- NOTE | 2017-03-13 11:24 | HOSPPROG ---
Hospitalist Progress Note Assessment/Plan: this is an 85 yo M admitted for CAP and COPD. #CAP, On CTX and azithro CTA shows emphysema appreciate pulm..D/W Dr Stanton second episode in short time period #Acute hypoxemic resp failure pt refuses to wear O2 in the outpt setting, has baseline need D/W pt, will consider multifactorial, some improvement over night cont support pulm consult pt was just hospitalized at [facility] for resp failure #Query CHF, unclear if systolic or diastolic. Unclear chronicity. Lasix BID TTE stable #COPD exac cont steroids #Acute leukocytosis significantly better #Hyponatremia better, dehydration #Anemia mild #Hypothyroid cont home meds #Hyperkalemia resolved with fluids #Constipation aggressive therapy #COR status D/W pt does not wish to be placed on a breathing machine or have chest compressions reviewed at length, will change code status to DNR per conversation will get palliative care involved #Dispo unclear, will need SNF PT/OT will go to [facility] at time of DC daughter, Megan, flying in today. Subjective: Up in the chair. Doing well. Breathing ok. No pain. Objective: Vital Signs Temp Pulse Resp BP Pulse Ox 36.2 C 76 18 126/56 H 92 03/13/17 11:00 03/13/17 11:05 03/13/17 11:05 03/13/17 11:00 03/13/17 11:05 Laboratory Results 03/11/17 05:00 03/11/17 05:00 03/12/17 03/13/17 03/14/17 05:59 05:59 05:59 Intake Total 460 300 Output Total 1500 600 Balance -1040 -300 - Physical Exam Constitutional: no apparent distress, not in pain, chronically ill appearing Eyes: PERRL, anicteric sclera, EOMI Ears, Nose, Mouth, Throat: moist mucous membranes, hearing normal, ears appear normal Cardiovascular: edema, No JVD, No tachycardia Respiratory: no respiratory distress, no rales or rhonchi, reduced air movement Gastrointestinal: No tenderness, No ascites, No guarding Skin: warm, normal color, No erythema Musculoskeletal: normal joint ROM, no joint effusions, generalized weakness Neurologic: AAOx3 Psychiatric: not anxious, not encephalopathic, thought process linear ICD10 Worksheet Patient Problems: Problems Problem Status Onset Chronic Disease Mgmt/Transitional Care Acute Pneumonia Acute Severe sepsis Acute
[2017-03-13] MEDS ORDERED: BISACODYL 10 MG SUPP PR PRN (11:55)
[2017-03-13] MEDS ORDERED: POLYETHYLENE GLYCOL 3350 17 GM PKT PO PRN (11:55)
[2017-03-13] MEDS ORDERED: MAGNESIUM HYDROXIDE 30 ML UDCUP PO PRN (11:55)
[2017-03-13] MEDS ORDERED: LACTULOSE 20 GM/30 ML UDCUP PO PRN (11:55)
--- NOTE | 2017-03-13 13:24 | PDINTPN ---
Senior Consultant Progress Note Assessment/Plan: Assessment: CAP: Both bases. Superimposed edema and fibrosis. Is at some risk for nosocomial infection given hospitalization 2 1/2 months ago for pneumonia. Currently on CTX/JUAN J. Had eval at [facility] for aspiration. COPD exacerbation: Due to pneumonia. On Prednisone, guaifenesin, and bronchodilators, including his Advair and Spiriva. Pulmonary Fibrosis: Suspected, although hard to say extent with acute infiltrates Pulmonary edema:L I suspect there is a component of this. On Lasix. Pulmonary HTN: Likely acute on chronic. AF: None now. Stopped Amio 03/12 Plan: Continue current management. Await sputum Cx. Agree with DNR and Palliative consult. Will benefit from O2 at home if he is willing to use it. D/W Rebecca Grimm 03/13/17 13:27 03/13/17 13:28 Subjective: Feels breathing is a bit better, with a little less rattling, productive cough, and ZIEGLER. Objective: Vital Signs Temp Pulse Resp BP Pulse Ox 36.2 C 76 18 126/56 H 83 L 03/13/17 11:00 03/13/17 11:05 03/13/17 11:05 03/13/17 11:00 03/13/17 11:25 Laboratory Results 03/11/17 05:00 03/11/17 05:00 03/12/17 03/13/17 03/14/17 05:59 05:59 05:59 Intake Total 460 300 Output Total 1500 600 Balance -1040 -300 Physical Exam - Physical Exam General Appearance: alert, no apparent distress EENT: normal ENT inspection Neck: normal inspection Respiratory: crackles (bases) Cardiac/Chest: regular rate, rhythm, No edema Abdomen: normal bowel sounds, non-tender, soft Skin: normal color, warm/dry Extremities: normal inspection Neuro/Psych: alert, normal mood/affect, oriented x 3 ICD10 Worksheet Patient Problems: Problems Problem Status Onset Chronic Disease Mgmt/Transitional Care Acute Pneumonia Acute Severe sepsis Acute
[2017-03-13] MEDS: FLUTICASONE NASAL 120 SPRAYS/16 GM MDI EACHNARE SCH (16:18)
[2017-03-13] MEDS: SENNOSIDES/DOCUSATE SODIUM TAB PO SCH (20:23)
[2017-03-14] MEDS: IPRATROPIUM/ALBUTEROL 3 ML DEYVIAL IH SCH ×4 (06:07→21:55)
[2017-03-14] MEDS: TIOTROPIUM INHALER 18 MCG/DOSE 5 DOSE/MDI IH SCH (09:50)
[2017-03-14] MEDS: FLUTICASONE/SALMETER 100/50MCG DISKUS IH SCH ×2 (09:55→21:56)
[2017-03-14] MEDS: AZITHROMYCIN IV 500 MG in D5W 250 ML IV SCH (10:00)
[2017-03-14] MEDS: ENOXAPARIN 40 MG/0.4 ML SYR SC SCH (10:00)
[2017-03-14] MEDS: FAMOTIDINE 20 MG TAB PO SCH (10:01)
[2017-03-14] MEDS: FLUTICASONE NASAL 120 SPRAYS/16 GM MDI EACHNARE SCH (10:02)
[2017-03-14] MEDS: FUROSEMIDE 40 MG/4 ML VIAL IVP SCH ×2 (10:02→14:50)
[2017-03-14] MEDS: guaiFENesin 600 MG TAB.ER PO SCH ×2 (10:02→20:05)
[2017-03-14] MEDS: predniSONE 20 MG TAB PO SCH (10:18)
[2017-03-14] MEDS: SENNOSIDES/DOCUSATE SODIUM TAB PO SCH ×2 (10:18→20:05)
[2017-03-14] MEDS: TAMSULOSIN HCL 0.4 MG CAP PO SCH ×2 (10:18→20:05)
[2017-03-14] MEDS: LEVOTHYROXINE 50 MCG TAB PO SCH (10:19)
[2017-03-14] MEDS: METOPROLOL TARTRATE 25 MG TAB PO SCH ×2 (10:19→20:05)
--- NOTE | 2017-03-14 12:33 | SOAPPROG ---
SOAP Progress Note Assessment/Plan: Assessment/Plan: * Community-acquired pneumonia- Both bases. Superimposed edema and fibrosis. Is at some risk for nosocomial infection given hospitalization 2 1/2 months ago for pneumonia. Currently on CTX/JUAN J. Had eval at [facility] for aspiration. * COPD exacerbation: Due to pneumonia. -continue Prednisone, guaifenesin, and bronchodilators, including his Advair and Spiriva. * Acute respiratory failure-secondary to pneumonia, COPD exacerbation, and pulmonary fibrosis. -wean FiO2 as tolerated * Pulmonary Fibrosis: Suspected, although hard to say extent with acute infiltrates * Pulmonary edema-I suspect there is a component of this. On Lasix. * Pulmonary HTN: Likely acute on chronic. * AF-resolved Subjective: Sitting up in chair eating lunch. States breathing easier and that his cough has diminished. Still on high FiO2 requirements Objective: Vital Signs Temp Pulse Resp BP Pulse Ox 36.2 C 71 16 143/68 H 90 L 03/14/17 11:50 03/14/17 11:50 03/14/17 11:50 03/14/17 11:50 03/14/17 11:50 Microbiology 03/13/17 10:26 - Final Sputum, Expectorated Laboratory Results 03/11/17 05:00 03/11/17 05:00 03/13/17 03/14/17 03/15/17 05:59 05:59 05:59 Intake Total 300 200 Output Total 600 1450 900 Balance -300 -1250 -900 Physical Exam - Physical Exam General Appearance: alert, no apparent distress EENT: PERRL/EOMI, normal ENT inspection Neck: non-tender, full range of motion, supple, normal inspection Respiratory: crackles, prolonged expiration, No respiratory distress, No wheezing Cardiac/Chest: normal peripheral pulses, regular rate, rhythm Peripheral Pulses: 2+: carotid (R), carotid (L), femoral (R), femoral (L), dorsalis-pedis (R), dorsalis-pedis (L) Abdomen: normal bowel sounds, non-tender, soft Male Genitalia: deferred Rectal: deferred Skin: normal color, warm/dry Extremities: normal range of motion, non-tender, normal inspection, normal capillary refill ICD10 Worksheet Patient Problems: Problems Problem Status Onset Chronic Disease Mgmt/Transitional Care Acute Pneumonia Acute Severe sepsis Acute
--- NOTE | 2017-03-14 14:54 | HOSPPROG ---
Hospitalist Progress Note Assessment/Plan: 86-year-old gentleman admitted with a 03/07 with CPAP. Hospital day 8. since admission he is noted to have bilateral lower lobe infiltrates consistent with CAP and has been on azithromycin and Rocephin. Patient is new to me today. - CAP at both bases: Has received azithromycin and currently on Rocephin. He is slowly improving. Chest x-ray would indicate that there is pneumonia superimposed on top of possible edema and probably pulmonary fibrosis. Thus the gentleman is likely to need home O2. - Acute respiratory failure secondary to pneumonia, COPD exacerbation, and pulmonary fibrosis. We will will diminish FiO2 as tolerated - COPD acute exacerbation with pneumonia And hypoxemia - possible pulmonary edema. Echocardiogram shows normal LV EF with evidence of diastolic dysfunction. Patient is on Lasix for the latter. - Pulmonary fibrosis: There is probably some underlying fibrosis although it is hard to stay given the extent of his infiltrates. This can be further evaluated as an outpatient. Patient is likely to require home O2. - Atrial fibrillation: Resolved Subjective: no complaints no complaints of chest pain or shortness of breath he says he is feeling slightly improved. patient seems to have a poor understanding of the severity of his illness and the needs of his care. Objective: Vital Signs Temp Pulse Resp BP Pulse Ox 36.2 C 71 16 143/68 H 90 L 03/14/17 11:50 03/14/17 11:50 03/14/17 11:50 03/14/17 11:50 03/14/17 11:50 Microbiology 03/13/17 10:26 - Final Sputum, Expectorated Laboratory Results 03/11/17 05:00 03/11/17 05:00 03/13/17 03/14/17 03/15/17 05:59 05:59 05:59 Intake Total 300 200 450 Output Total 600 1450 900 Balance -300 -1250 -450 - Time Spent With Patient Time Spent with Patient: greater than 35 minutes Time Spent with Patient: Greater than 35 minutes spent on this patients care, greater than 50% of time spent counseling, educating, and coordinating care regarding the above mentioned plan. - Pending Discharge Pending Discharge Within 24 Hours: No Pending Discharge Within 48 Hours: No - Physical Exam Constitutional: chronically ill appearing Eyes: PERRL Ears, Nose, Mouth, Throat: moist mucous membranes, poor dentition, hard of hearing Cardiovascular: regular rate and rhythym, no murmur, rub, or gallop Respiratory: inspiratory crackles, bronchial breath sounds, rhonchi Gastrointestinal: normoactive bowel sounds, soft, non-tender abdomen Skin: warm Musculoskeletal: generalized weakness Psychiatric: interacting appropriately ICD10 Worksheet Patient Problems: Problems Problem Status Onset Chronic Disease Mgmt/Transitional Care Acute Pneumonia Acute Severe sepsis Acute
--- NOTE | 2017-03-14 18:15 | PDPCPN ---
Palliative Care Progress Note Assessment/Plan: Referring provider: Reason for consult: Complex medical decision making Symptom control HPI: Jacob Melendez (Ron) is a 86 yo male with PMH GERD, BPH, and COPD admitted to the hospital with increasing cough and SOB. Found to have bilateral infiltrates on CXR started for treatment of CAP and acute COPD exacerbation. Recent discharge for the same problem. He lives at [facility] living and has family out of state but involved. Started on antibiotics, fluids, and oxygen. Still requiring increased levels of oxygen at 8L on oxymizer. Palliative care consulted for complex medical decision making. Met at the bedside with Neo and his daughter. Discussed his goals. Neo states he very much enjoys dancing and golfing. He hasn't been golfing since his move into [facility] which was about 1 year ago. This was for a temporary move to get his balance improved before he could go home again. His ultimate goal is to be independent again and driving. He has a dance partner who comes and picks him up to go dancing but is often limited by his poor balance. He adamantly refuses to wear oxygen back at "home" ([facility]). He understands this could result in a shortened life expectancy if he continues to require oxygen use after rehab. He stated "then I will ". He would rather than have to wear oxygen as he feels he could not do the things that are most important to him with oxygen on. His family is supportive of whatever decision he makes including seeing how he does in rehab and if he continues to require baseline level of oxygen then potentially looking into hospice care once he is finished at rehab. They want to make sure he is "happy" and will be able to support him if he improves or if he declines. 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 She understands the benefits/risks of not wearing oxygen and supports her dad in his decisions to focus on quality of life even if that means a shorter life expectancy. Assessment: Physical: - Dyspnea: at times. especially with ambulation - oxygen 8 L currently - on steroids, nebs per primary - a fan can also help subjective dyspnea - Weakness - PT/OT on consult Emotional/psychological: some memory loss. Good support from family. Advanced Care Planning: Is patient decisional?: Yes Code Status: DNR/DNI MD JANE: daughter and 2 sons are MDPOA. Plan: Rehab at [facility]. He would not want to remain on oyxgen at [facility]. Understands this will result in shorter life expectancy. Values being independently. Potential for hospice as an option in the future if he does not recovery at rehab. Subjective: I feel good Objective: Social History: 1 daughter and 2 sons involved. since 2009. Enjoys golfing and dancing. Lives at [facility]. Medication list reviewed ROS: General: fatigue, weakness ENT: negative Resp: dyspnea, cough GI: negative : negative MS: negative Skin: negative Neuro: negative Psych: some memory loss Functional assessment: PPS: 50% Functional status: needs assistance with ADLs. Vital Signs Temp Pulse Resp BP Pulse Ox 36.3 C 80 18 129/69 H 94 03/14/17 16:00 03/14/17 16:00 03/14/17 16:00 03/14/17 16:00 03/14/17 16:00 Microbiology 03/13/17 10:26 - Final Sputum, Expectorated Laboratory Results 03/11/17 05:00 03/11/17 05:00 03/13/17 03/14/17 03/15/17 05:59 05:59 05:59 Intake Total 300 200 450 Output Total 600 1450 1900 Balance -300 -1250 -1450 Physical Exam - Physical Exam General Appearance: alert, no apparent distress Respiratory: No respiratory distress, No accessory muscle use Skin: normal color, warm/dry Extremities: pedal edema Neuro/Psych: alert, oriented x 3 ICD10 Worksheet Patient Problems: Problems Problem Status Onset Chronic Disease Mgmt/Transitional Care Acute MRSA (methicillin resistant Staphylococcus aureus) Acute ~03/13/17 Palliative care encounter Acute Pneumonia Acute Severe sepsis Acute - ICD10 Problem Qualifiers (1) Palliative care encounter
[2017-03-15] MEDS: IPRATROPIUM/ALBUTEROL 3 ML DEYVIAL IH SCH ×4 (05:22→21:52)
[2017-03-15] MEDS: FAMOTIDINE 20 MG TAB PO SCH (08:16)
[2017-03-15] MEDS: predniSONE 20 MG TAB PO SCH (08:16)
[2017-03-15] MEDS: METOPROLOL TARTRATE 25 MG TAB PO SCH ×2 (08:16→21:37)
[2017-03-15] MEDS: TAMSULOSIN HCL 0.4 MG CAP PO SCH ×2 (08:16→21:38)
[2017-03-15] MEDS: LEVOTHYROXINE 50 MCG TAB PO SCH (08:16)
[2017-03-15] MEDS: guaiFENesin 600 MG TAB.ER PO SCH ×2 (08:16→21:37)
[2017-03-15] MEDS: FUROSEMIDE 40 MG/4 ML VIAL IVP SCH ×2 (08:17→14:38)
[2017-03-15] MEDS: ENOXAPARIN 40 MG/0.4 ML SYR SC SCH (08:17)
[2017-03-15] MEDS: SENNOSIDES/DOCUSATE SODIUM TAB PO SCH ×2 (08:17→21:37)
[2017-03-15] MEDS: FLUTICASONE NASAL 120 SPRAYS/16 GM MDI EACHNARE SCH (08:34)
[2017-03-15] MEDS: AZITHROMYCIN IV 500 MG in D5W 250 ML IV SCH (10:16)
[2017-03-15] MEDS: FLUTICASONE/SALMETER 100/50MCG DISKUS IH SCH ×2 (10:33→21:52)
[2017-03-15] MEDS: TIOTROPIUM INHALER 18 MCG/DOSE 5 DOSE/MDI IH SCH (10:33)
--- NOTE | 2017-03-15 12:46 | SOAPPROG ---
SOAP Progress Note Assessment/Plan: Assessment/Plan: * Community-acquired pneumonia- Both bases. Superimposed fibrosis. MRSA from sputum. Clinically better on current antibiotic regime. Query of MRSA is colonization. -DC Rocephin, will start clindamycin * COPD exacerbation: Due to pneumonia. -continue Prednisone, guaifenesin, and bronchodilators, including his Advair and Spiriva. * Acute respiratory failure-secondary to pneumonia, COPD exacerbation, and pulmonary fibrosis. -wean FiO2 as tolerated * Pulmonary Fibrosis: Suspected, although hard to say extent with acute infiltrates * Pulmonary edema-I suspect there is a component of this. On Lasix. * Pulmonary HTN: Likely acute on chronic. * AF-resolved 03/15/17 12:45 Subjective: Sitting up in chair. Still with cough, however this is improved. Still feels weak especially when ambulating Objective: Vital Signs Temp Pulse Resp BP Pulse Ox 36.3 C 74 20 87/39 L 94 03/15/17 11:34 03/15/17 11:34 03/15/17 11:34 03/15/17 11:34 03/15/17 11:34 Microbiology 03/13/17 10:26 - Final Sputum, Expectorated Sputum Culture - Final MRSA Meg Albicans Laboratory Results 03/11/17 05:00 03/11/17 05:00 03/14/17 03/15/17 03/16/17 05:59 05:59 05:59 Intake Total 200 750 Output Total 1450 2950 Balance -1250 -2200 Laboratory Results 03/11/17 05:00 03/11/17 05:00 03/13/17 10:26 - Final Sputum, Expectorated Sputum Culture - Final MRSA Meg Albicans Physical Exam - Physical Exam General Appearance: alert, no apparent distress EENT: PERRL/EOMI, normal ENT inspection, pharynx normal, TMs normal Neck: non-tender, full range of motion, supple, normal inspection Respiratory: crackles, prolonged expiration, No respiratory distress, No wheezing Cardiac/Chest: normal peripheral pulses, regular rate, rhythm Abdomen: normal bowel sounds, non-tender, soft Male Genitalia: deferred Rectal: deferred Skin: normal color, warm/dry Extremities: normal range of motion, non-tender, normal inspection, normal capillary refill Neuro/Psych: no motor/sensory deficits, alert, normal mood/affect, oriented x 3 ICD10 Worksheet Patient Problems: Problems Problem Status Onset Chronic Disease Mgmt/Transitional Care Acute MRSA (methicillin resistant Staphylococcus aureus) Acute ~03/13/17 Palliative care encounter Acute Pneumonia Acute Severe sepsis Acute
[2017-03-15] MEDS: CLINDAMYCIN 150 MG CAP PO SCH ×2 (14:38→21:37)
--- NOTE | 2017-03-15 15:49 | HOSPPROG ---
Hospitalist Progress Note Assessment/Plan: 86-year-old gentleman admitted with a 03/07 with CPAP. Hospital day 8. since admission he is noted to have bilateral lower lobe infiltrates consistent with CAP and has been on azithromycin and Rocephin. - CAP at both bases: Has received azithromycin and currently on Rocephin. He is slowly improving. Chest x-ray would indicate that there is pneumonia superimposed on top of possible edema and probably pulmonary fibrosis. Thus the gentleman is likely to need home O2. - COPD: He has underlying COPD from over 50 pack year history of tobacco with findings on chest x-ray and CT scan showing pulmonary fibrosis. He will require baseline bronchodilators for his ongoing care. - Acute respiratory failure secondary to pneumonia, COPD exacerbation, and pulmonary fibrosis. We will will diminish FiO2 as tolerated - possible pulmonary edema. Echocardiogram shows normal LV EF with evidence of diastolic dysfunction. Patient is on Lasix for the latter. - Pulmonary fibrosis: There is probably some underlying fibrosis although it is hard to stay given the extent of his infiltrates. This can be further evaluated as an outpatient. Patient is likely to require home O2. - Atrial fibrillation: Resolved disposition: Patient has been in assisted living but due to debility weakness and severity of his pulmonary issues I suggest he be discharged to an SNF for 2 -4 weeks for rehab and strengthening. If he maintain sufficient strength and can ambulate he might be able to avoid further pulmonary complications and repeat pneumonia. Subjective: Reports she is feeling improved. Objective: Vital Signs Temp Pulse Resp BP Pulse Ox 36.3 C 83 16 120/55 L 93 03/15/17 15:39 03/15/17 15:39 03/15/17 15:39 03/15/17 15:39 03/15/17 15:39 Microbiology 03/13/17 10:26 - Final Sputum, Expectorated Sputum Culture - Final MRSA Meg [facility] Laboratory Results 03/11/17 05:00 03/11/17 05:00 03/14/17 03/15/17 03/16/17 05:59 05:59 05:59 Intake Total 200 750 Output Total 1450 2950 Balance -1250 -2200 - Time Spent With Patient Time Spent with Patient: greater than 35 minutes Time Spent with Patient: Greater than 35 minutes spent on this patients care, greater than 50% of time spent counseling, educating, and coordinating care regarding the above mentioned plan. - Pending Discharge Pending Discharge Within 24 Hours: No Pending Discharge Within 48 Hours: Yes Pending Discharge Date: 03/17/17 Pending Discharge Time: 11:00 - Physical Exam Constitutional: no apparent distress, chronically ill appearing Eyes: PERRL, anicteric sclera Ears, Nose, Mouth, Throat: moist mucous membranes Cardiovascular: regular rate and rhythym, no murmur, rub, or gallop Respiratory: no respiratory distress, other ( Decreased breath sounds overall with very few scattered inspiratory crackles.) Gastrointestinal: normoactive bowel sounds, soft, non-tender abdomen Skin: warm Musculoskeletal: generalized weakness Neurologic: AAOx3, CN II-XII Intact Psychiatric: interacting appropriately ICD10 Worksheet Patient Problems: Problems Problem Status Onset MRSA (methicillin resistant Staphylococcus aureus) Acute ~03/13/17 Palliative care encounter Acute Chronic Disease Mgmt/Transitional Care Acute Pneumonia Acute Severe sepsis Acute
[2017-03-16] MEDS: CLINDAMYCIN 150 MG CAP PO SCH ×3 (05:40→21:20)
[2017-03-16 05:54] LABS: ADD DIFF? YES; ADD MORPH? NO; ADD SCAN? NO; ATYPICAL LYMPHOCYTE FLAG 20 (0-99); FRAGMENT RBC FLAG 0 (0-99); HEMATOCRIT 34.2 % (40.0-51.0); HEMOGLOBIN 11.3 g/dL (13.7-17.5); LEFT SHIFT FLG 60 (0-99); LIPEMIA HEMOLYSIS FLAG 80 (0-99); MEAN CELL HEMOGLOBIN 31.6 pg (27.9-34.1); MEAN CELL VOLUME 95.5 fL (81.5-99.8); MEAN PLATELET VOLUME 9.6 fL (8.7-11.7); PLATELET CLUMPS FLAG 0 (0-99); PLATELET COUNT 393 10^3/uL (150-400); RED BLOOD CELL COUNT 3.58 10^6/uL (4.40-6.38); RED CELL DISTRIBUTION WIDTH 14.8 % (11.5-15.2)
[2017-03-16 06:16] LABS: ALANINE AMINOTRANSFERASE 42 IU/L (21-72); ALBUMIN 2.7 g/dL (3.5-5.0); ALKALINE PHOSPHATASE 73 IU/L (38-126); ANION GAP 8 mEq/L (8-16); ASPARTATE AMINOTRANSFERASE 22 IU/L (17-59); BILIRUBIN,TOTAL 0.5 mg/dL (0.1-1.4); CALCIUM 8.7 mg/dL (8.5-10.4); CARBON DIOXIDE 26 mEq/l (22-31); CHLORIDE 97 mEq/L (97-110); CREATININE 1.2 mg/dL (0.7-1.3); GLOMERULAR FILTRATION RATE 57; GLUCOSE 78 mg/dL (70-100); POTASSIUM 4.9 mEq/L (3.5-5.2); SODIUM 131 mEq/L (134-144); TOTAL PROTEIN 5.6 g/dL (6.3-8.2)
[2017-03-16] MEDS: IPRATROPIUM/ALBUTEROL 3 ML DEYVIAL IH SCH ×4 (06:20→22:03)
[2017-03-16 06:51] LABS: PLATELET ESTIMATE ADEQUATE (ADEQ)
[2017-03-16] MEDS: FLUTICASONE/SALMETER 100/50MCG DISKUS IH SCH ×2 (08:53→22:05)
[2017-03-16] MEDS: TIOTROPIUM INHALER 18 MCG/DOSE 5 DOSE/MDI IH SCH (08:54)
[2017-03-16] MEDS: FUROSEMIDE 40 MG/4 ML VIAL IVP SCH ×2 (09:49→14:52)
[2017-03-16] MEDS: TAMSULOSIN HCL 0.4 MG CAP PO SCH ×2 (09:49→21:20)
[2017-03-16] MEDS: guaiFENesin 600 MG TAB.ER PO SCH ×2 (09:49→21:20)
[2017-03-16] MEDS: METOPROLOL TARTRATE 25 MG TAB PO SCH ×2 (09:50→21:20)
[2017-03-16] MEDS: FAMOTIDINE 20 MG TAB PO SCH (09:50)
[2017-03-16] MEDS: predniSONE 20 MG TAB PO SCH (09:50)
[2017-03-16] MEDS: FLUTICASONE NASAL 120 SPRAYS/16 GM MDI EACHNARE SCH (09:50)
[2017-03-16] MEDS: LEVOTHYROXINE 50 MCG TAB PO SCH (09:50)
[2017-03-16] MEDS: AZITHROMYCIN 250 MG TAB PO SCH (09:50)
[2017-03-16] MEDS: ENOXAPARIN 40 MG/0.4 ML SYR SC SCH (09:50)
[2017-03-16] MEDS: SENNOSIDES/DOCUSATE SODIUM TAB PO SCH ×2 (09:51→21:22)
--- NOTE | 2017-03-16 13:14 | HOSPPROG ---
Hospitalist Progress Note Assessment/Plan: 86-year-old gentleman admitted with a 03/07 with CPAP. Hospital day 8 since admission he is noted to have bilateral lower lobe infiltrates consistent with CAP and has been on azithromycin and Rocephin. - CAP at both bases with MRSA: Has received azithromycin and Rocephin. Now on clinda and azithro. He is slowly improving. Chest x-ray would indicate that there is pneumonia superimposed on top of possible edema and probably pulmonary fibrosis. Thus the gentleman is likely to need home O2. - COPD: He has underlying COPD from over 50 pack year history of tobacco with findings on chest x-ray and CT scan showing pulmonary fibrosis. He will require baseline bronchodilators for his ongoing care. - Acute respiratory failure secondary to pneumonia, COPD exacerbation, and pulmonary fibrosis. - possible pulmonary edema. Echocardiogram shows normal LV EF with evidence of diastolic dysfunction. Patient is on Lasix for the latter. - Pulmonary fibrosis: There is probably some underlying fibrosis although it is hard to stay given the extent of his infiltrates. This can be further evaluated as an outpatient. Patient is likely to require home O2. - Hyponatremia with a sodium of 130 and a leukocytosis. His white count has been declining for the last 5 days but will repeat both the sodium him WBC to assess improvement. If the sodium continues to be low I suggest free water restriction. - Atrial fibrillation: Resolved -Anemia mild -Hypothyroid cont home meds -Hyperkalemia resolved with fluids -Constipation aggressive therapy -COR status DNR #Dispo unclear, will need SNF PT/OT will go to [facility] at time of DC Subjective: Up in the chair. Feels ok. Not much improvement. Objective: Vital Signs Temp Pulse Resp BP Pulse Ox 36.4 C 71 18 93/48 L 93 03/16/17 12:38 03/16/17 12:38 03/16/17 12:38 03/16/17 12:38 03/16/17 12:38 Microbiology 03/13/17 10:26 - Final Sputum, Expectorated Sputum Culture - Final MRSA Meg [facility] Laboratory Results 03/16/17 05:10 03/16/17 05:10 03/15/17 03/16/17 03/17/17 05:59 05:59 05:59 Intake Total 750 700 Output Total 2950 1260 Balance -2200 -560 - Physical Exam Constitutional: not in pain, chronically ill appearing Eyes: PERRL, anicteric sclera Ears, Nose, Mouth, Throat: moist mucous membranes, hard of hearing Cardiovascular: No JVD, No tachycardia Respiratory: no respiratory distress, reduced air movement Gastrointestinal: No tenderness, No ascites Skin: warm, normal color Musculoskeletal: no joint effusions, generalized weakness Neurologic: AAOx3 Psychiatric: not anxious, not encephalopathic ICD10 Worksheet Patient Problems: Problems Problem Status Onset MRSA (methicillin resistant Staphylococcus aureus) Acute ~03/13/17 Palliative care encounter Acute Chronic Disease Mgmt/Transitional Care Acute Pneumonia Acute Severe sepsis Acute
--- NOTE | 2017-03-16 13:43 | SOAPPROG ---
SOAP Progress Note Assessment/Plan: Assessment/Plan: * Community-acquired pneumonia- Both bases. Superimposed fibrosis. MRSA from sputum. Clinically better on current antibiotic regime. Query of MRSA is colonization. - currently on clindamycin * COPD exacerbation: Due to pneumonia. -continue Prednisone, guaifenesin, and bronchodilators, including his Advair and Spiriva. - will add aggressive pulmonary toilet * Acute respiratory failure-secondary to pneumonia, COPD exacerbation, and pulmonary fibrosis. -wean FiO2 as tolerated. Back on 10 L * Pulmonary Fibrosis: Suspected, although hard to say extent with acute infiltrates * Pulmonary edema-I suspect there is a component of this. On Lasix. * Pulmonary HTN: Likely acute on chronic. * AF-resolved * disposition - slow to improve. Subjective: up in chair. States more breathless. There is no chest pain. Becomes profoundly hypoxemic with any form of exertion Objective: Vital Signs Temp Pulse Resp BP Pulse Ox 36.4 C 71 18 93/48 L 93 03/16/17 12:38 03/16/17 12:38 03/16/17 12:38 03/16/17 12:38 03/16/17 12:38 Microbiology 03/13/17 10:26 - Final Sputum, Expectorated Sputum Culture - Final MRSA Meg [facility]icans Laboratory Results 03/16/17 05:10 03/16/17 05:10 03/15/17 03/16/17 03/17/17 05:59 05:59 05:59 Intake Total 750 700 Output Total 2950 1260 Balance -2200 -560 Physical Exam - Physical Exam General Appearance: alert, no apparent distress EENT: PERRL/EOMI, normal ENT inspection, pharynx normal, TMs normal Neck: non-tender, full range of motion, supple, normal inspection Respiratory: crackles, prolonged expiration, No normal breath sounds, No respiratory distress, No wheezing Cardiac/Chest: normal peripheral pulses, regular rate, rhythm, systolic murmur Peripheral Pulses: 2+: carotid (R), carotid (L), femoral (R), femoral (L), dorsalis-pedis (R), dorsalis-pedis (L) Abdomen: normal bowel sounds, non-tender, soft Male Genitalia: deferred Rectal: deferred Skin: normal color, warm/dry Extremities: normal range of motion, non-tender, normal inspection, normal capillary refill Neuro/Psych: alert ICD10 Worksheet Patient Problems: Problems Problem Status Onset Chronic Disease Mgmt/Transitional Care Acute MRSA (methicillin resistant Staphylococcus aureus) Acute ~03/13/17 Palliative care encounter Acute Pneumonia Acute Severe sepsis Acute
[2017-03-17] MEDS: CLINDAMYCIN 150 MG CAP PO SCH (05:46)
[2017-03-17] MEDS: IPRATROPIUM/ALBUTEROL 3 ML DEYVIAL IH SCH ×2 (05:50→11:22)
[2017-03-17 07:35] VITALS: RESP 18
[2017-03-17] MEDS: FLUTICASONE/SALMETER 100/50MCG DISKUS IH SCH (08:47)
[2017-03-17] MEDS: TIOTROPIUM INHALER 18 MCG/DOSE 5 DOSE/MDI IH SCH (08:47)
[2017-03-17] MEDS: guaiFENesin 600 MG TAB.ER PO SCH (09:55)
[2017-03-17] MEDS: SENNOSIDES/DOCUSATE SODIUM TAB PO SCH (09:55)
[2017-03-17] MEDS: predniSONE 20 MG TAB PO SCH (09:55)
[2017-03-17] MEDS: AZITHROMYCIN 250 MG TAB PO SCH (09:55)
[2017-03-17] MEDS: METOPROLOL TARTRATE 25 MG TAB PO SCH (09:55)
[2017-03-17] MEDS: FAMOTIDINE 20 MG TAB PO SCH (09:55)
[2017-03-17] MEDS: LEVOTHYROXINE 50 MCG TAB PO SCH (09:55)
[2017-03-17] MEDS: TAMSULOSIN HCL 0.4 MG CAP PO SCH (09:55)
[2017-03-17] MEDS: FUROSEMIDE 40 MG/4 ML VIAL IVP SCH (09:56)
[2017-03-17] MEDS: FLUTICASONE NASAL 120 SPRAYS/16 GM MDI EACHNARE SCH (09:56)
[2017-03-17] MEDS: ENOXAPARIN 40 MG/0.4 ML SYR SC SCH (09:56)
[2017-03-17] MEDS ORDERED: IPRATROPIUM/ALBUTEROL 3 ML DEYVIAL ONE (10:56)
--- NOTE | 2017-03-17 10:58 | PDIAF ---
- Diagnosis Diagnosis: PNA Code Status: Do Not Resuscitate - Medication Management Discharge Medications: Medications to Continue on Transfer Bisacodyl [Dulcolax] 10 mg RC DAILY PRN 03/07/17 [Last Taken Unknown] Fluticasone Nasal [Flonase Nasal [place]] 1 sprays EACHNARE DAILY 03/07/17 [Last Taken Unknown] Fluticasone/Salmeter 100/50Mcg [Advair 100/50 (*)] 1 puffs IH BID 03/07/17 [ Last Taken Unknown] Herbals/Supplements -Info Only 1 ea PO DAILY 03/07/17 [Last Taken Unknown] Levothyroxine [Synthroid 50 mcg (*)] 50 mcg PO DAILY 03/07/17 [Last Taken Unknown] Metoprolol Tartrate [Lopressor 25 mg (*)] 25 mg PO BID 03/07/17 [Last Taken Unknown] Nystatin [Mycostatin 15Gm] 1 yahaira TP BID PRN 03/07/17 [Last Taken Unknown] Polyethylene Glycol 3350 [Miralax 17 gm (*)] 17 gm PO DAILY PRN 03/07/17 [Last Taken Unknown] Ranitidine HCl [Zantac 75] 150 mg PO DAILY 03/07/17 [Last Taken Unknown] Tamsulosin HCl [Flomax 0.4 MG (*)] 0.4 mg PO BID 03/07/17 [Last Taken Unknown] Tiotropium Inhaler [Spiriva Handihaler] 18 mcg IH DAILY@09 03/07/17 [Last Taken Unknown] predniSONE [Prednisone] 5 mg PO DAILY 03/07/17 [Last Taken Unknown] Acetaminophen [Tylenol 325mg (*)] 650 mg PO Q4HRS PRN #0 tab 03/17/17 [Last Taken Unknown] Clindamycin 150 mg PO Q8HRS cap 03/17/17 [Last Taken Unknown] Ipratropium/Albuterol [Duoneb (*)] 3 ml IH Q6HRS deyvial 03/17/17 [Last Taken Unknown] Sennosides/Docusate Sodium [Senokot-S] 1 - 2 tab PO BID tab 03/17/17 [Last Taken Unknown] guaiFENesin [Mucinex 600 MG (*)] 1,200 mg PO BID tab.er 03/17/17 [Last Taken Unknown] Discharge Medications: Refer to the Discharge Home Medication list for PRN reason. PICC Care - Routine: N/A - Orders Services needed: Registered Nurse, Physical Therapy, Occupational Therapy Diet Recommendation: no restrictions on diet - Follow Up Care Current Providers and Referrals: Patient,NotPresent [Unknown] - As per Instructions
[2017-03-17 11:17] VITALS: BP 97/48; TEMP 97.3
[2017-03-17 11:35] VITALS: PULSE 66; O2SAT 93
--- NOTE | 2017-03-17 12:11 | SOAPPROG ---
SOAP Progress Note Assessment/Plan: Assessment/Plan: * Community-acquired pneumonia- Both bases. Superimposed fibrosis. MRSA from sputum. Clinically better on current antibiotic regime. Query of MRSA is colonization. - currently on clindamycin * COPD exacerbation: Due to pneumonia. -continue Prednisone, guaifenesin, and bronchodilators, including his Advair and Spiriva. - will add aggressive pulmonary toilet * Acute respiratory failure-secondary to pneumonia, COPD exacerbation, and pulmonary fibrosis. -wean FiO2 as tolerated. Back on 10 L * Pulmonary Fibrosis: Suspected, although hard to say extent with acute infiltrates * Pulmonary edema-I suspect there is a component of this. On Lasix. * Pulmonary HTN: Likely acute on chronic. * AF-resolved * disposition - okay for halfway from pulmonary standpoint Subjective: Comfortable. Still breathless with exertion. No fever or night sweats. His cough has become nonproductive Objective: Vital Signs Temp Pulse Resp BP Pulse Ox 36.3 C 66 18 97/48 L 93 03/17/17 11:15 03/17/17 11:22 03/17/17 11:22 03/17/17 11:15 03/17/17 11:22 Laboratory Results 03/16/17 05:10 03/16/17 05:10 03/16/17 03/17/17 03/18/17 05:59 05:59 05:59 Intake Total 700 900 Output Total 1260 700 Balance -560 200 Physical Exam - Physical Exam General Appearance: alert, no apparent distress EENT: PERRL/EOMI Neck: non-tender, full range of motion, supple, normal inspection Respiratory: crackles, prolonged expiration, No wheezing Cardiac/Chest: normal peripheral pulses, regular rate, rhythm, systolic murmur Abdomen: normal bowel sounds, non-tender, soft Male Genitalia: deferred Rectal: deferred Back: Normal inspection Skin: normal color, warm/dry ICD10 Worksheet Patient Problems: Problems Problem Status Onset Chronic Disease Mgmt/Transitional Care Acute MRSA (methicillin resistant Staphylococcus aureus) Acute ~03/13/17 Palliative care encounter Acute Pneumonia Acute Severe sepsis Acute
--- NOTE | 2017-03-17 14:37 | PDIAF ---
- Diagnosis Diagnosis: PNA Code Status: Do Not Resuscitate - Medication Management Discharge Medications: Medications to Continue on Transfer Bisacodyl [Dulcolax] 10 mg RC DAILY PRN 03/07/17 [Last Taken Unknown] Fluticasone Nasal [Flonase Nasal [place]] 1 sprays EACHNARE DAILY 03/07/17 [Last Taken Unknown] Fluticasone/Salmeter 100/50Mcg [Advair 100/50 (*)] 1 puffs IH BID 03/07/17 [ Last Taken Unknown] Herbals/Supplements -Info Only 1 ea PO DAILY 03/07/17 [Last Taken Unknown] Levothyroxine [Synthroid 50 mcg (*)] 50 mcg PO DAILY 03/07/17 [Last Taken Unknown] Metoprolol Tartrate [Lopressor 25 mg (*)] 25 mg PO BID 03/07/17 [Last Taken Unknown] Nystatin [Mycostatin 15Gm] 1 yahaira TP BID PRN 03/07/17 [Last Taken Unknown] Polyethylene Glycol 3350 [Miralax 17 gm (*)] 17 gm PO DAILY PRN 03/07/17 [Last Taken Unknown] Ranitidine HCl [Zantac 75] 150 mg PO DAILY 03/07/17 [Last Taken Unknown] Tamsulosin HCl [Flomax 0.4 MG (*)] 0.4 mg PO BID 03/07/17 [Last Taken Unknown] Tiotropium Inhaler [Spiriva Handihaler] 18 mcg IH DAILY@09 03/07/17 [Last Taken Unknown] predniSONE [Prednisone] 5 mg PO DAILY 03/07/17 [Last Taken Unknown] Acetaminophen [Tylenol 325mg (*)] 650 mg PO Q4HRS PRN #0 tab 03/17/17 [Last Taken Unknown] Clindamycin 150 mg PO Q8HRS cap 03/17/17 [Last Taken Unknown] Furosemide [Lasix 40 MG (*)] 40 mg PO BID #800 tab 03/17/17 [Last Taken Unknown] Ipratropium/Albuterol [Duoneb (*)] 3 ml IH Q6HRS deyvial 03/17/17 [Last Taken Unknown] Sennosides/Docusate Sodium [Senokot-S] 1 - 2 tab PO BID tab 03/17/17 [Last Taken Unknown] guaiFENesin [Mucinex 600 MG (*)] 1,200 mg PO BID tab.er 03/17/17 [Last Taken Unknown] Discharge Medications: Refer to the Discharge Home Medication list for PRN reason. PICC Care - Routine: N/A - Orders Services needed: Registered Nurse, Physical Therapy, Occupational Therapy Oxygen: titrate to 88-90% Diet Recommendation: no restrictions on diet - Follow Up Care Current Providers and Referrals: Patient,NotPresent [Unknown] - As per Instructions
--- NOTE | 2017-03-17 15:42 | GDS ---
[f rep st] DISCHARGE SUMMARY DISCHARGE DIAGNOSES: 1. Community-acquired pneumonia. 2. Methicillin-resistant Staphylococcus aureus colonization. 3. Chronic obstructive pulmonary disease exacerbation. 4. Acute respiratory failure. 5. Pulmonary fibrosis. 6. Pulmonary edema. 7. Pulmonary hypertension. 8. Atrial fibrillation. 9. Hyponatremia. 10. Anemia. 11. Hypothyroidism. 12. Hyperkalemia. 13. Constipation. CONSULTATIONS: 1. Palliative Care. 2. Pulmonology. PHYSICAL EXAMINATION: GENERAL: The patient is alert. VITAL SIGNS: Afebrile at 36.3, pulse is 67, respiratory rate is 18, blood pressure is 97/48. He is saturating 93% on 8 L. I have seen and evaluated the patient on the day of discharge. HOSPITAL COURSE: The patient is an 86-year-old male, who was admitted to the hospital secondary to complaints of shortness of breath. He was evaluated and diagnosed with: 1. Community-acquired pneumonia: During this hospitalization, he was treated with IV antibiotic th erapy. He did receive a consultation from Pulmonology. His sputum was noted for MRSA but is likely colonization. He will continue clindamycin in the outpatient setting. 2. Chronic obstructive pulmonary disease exacerbation: This is secondary to the patient's acute in fectious process. We will continue prednisone, guaifenesin, and bronchodilators at the time of disp osition. I have reviewed this with Dr. Sommers. 3. Acute respiratory failure: This is multifactorial. The patient continues to require significan t supplemental oxygen. He is saturating greater than 90% on 8 L. His goal oxygen saturation is bet ween 88% and 92%. 4. Pulmonary fibrosis: He will require a followup in the outpatient setting with Pulmonology. 5. Pulmonary edema: He will continue Lasix and treatment for this condition. 6. Pulmonary hypertension: This is acute on chronic and appears to be stable. 7. Atrial fibrillation: This has resolved. 8. Anemia: This is mild in the setting of acute illness. 9. Hypothyroidism: We will continue his previously prescribed home medications. 10. Hyperkalemia: This has resolved. DISPOSITION: The patient will be discharged to [facility] for further rehabilitation and management. He will require significant rehabilitation to regain any strength. I suspect that his new baselin e oxygenation will be about 6 L. He did have a palliative care consult during this hospitalization, and he has been transitioned to DNR status. I have reviewed the patient's care with Dr. Sommers as well as the patient and his family. They are all in agreement with this plan and understand that hi s condition is guarded, and his new baseline needs for oxygen have increased. I spent greater than 35 minutes in the care, coordination, and management of this patient's disposit ion. Follow up will be with his primary care physician, as well as a physician at [facility]. /[id number]/MODL
== END 2017-03-17 13:56 | DRG 190 ==
LOC: EDUNIT# → F3E 17:29
PROVIDERS: ADMIT Hospitalist; ATTEND Family Medicine
DX: J44.0 Chronic obstructive pulmonary disease with (acute) lower respiratory infection (principal); J44.1 Chronic obstructive pulmonary disease with (acute) exacerbation; J18.0 Bronchopneumonia, unspecified organism; J96.21 Acute and chronic respiratory failure with hypoxia; I27.2 Other secondary pulmonary hypertension; J81.0 Acute pulmonary edema; E86.0 Dehydration; E87.1 Hypo-osmolality and hyponatremia; E87.5 Hyperkalemia; E03.9 Hypothyroidism, unspecified; K21.9 Gastro-esophageal reflux disease without esophagitis; K59.00 Constipation, unspecified; R41.81 Age-related cognitive decline; Z87.891 Personal history of nicotine dependence
CPT/HCPCS: 96374; 97110-GP; 97116-GP; 97161-GP; 97165-GO; 97530-GO; 97535-GO; G8978-GP-CJ; G8979-GP-CI; G8987-GO-CJ; G8988-GO-CI; J0456; J0696; J1650; J1940; J1956; Q9967